=== PATIENT | male | born 1965 | race African-American/Black ===

== ENCOUNTER 2025-07-05 08:04 | Emergency (ER) | payer MEDICAID ==
[~2025-07-05] VITALS: Ht 182.9 cm; Wt 100.0 kg
[2025-07-05 08:06] VITALS: O2SAT 97
[2025-07-05 08:27] LABS: BASOPHILS % 0.5 % (0.0-2.0); EOSINOPHILS % 2.2 % (0.0-5.0); HEMATOCRIT. 38.8 % (42.0-52.0); HEMOGLOBIN. 12.7 g/dL (14.0-18.0); LYMPHOCYTES % 41.6 % (20.0-50.0); MEAN PLATELET VOLUME 9.7 fl (7.4-10.4); MONOCYTES % 6.7 % (2.0-8.0); NEUTROPHILS % 49.0 % (40.0-76.0); PLATELET 127 x1000/uL (130-400); RED BLOOD CELL COUNT 4.59 mill/uL (4.7-6.1); RED CELL DISTRIBUTION WIDTH 14.6 % (11.6-14.6)
[2025-07-05 08:45] LABS: CREATININE 1.2 mg/dL (0.6-1.3); TROPONIN I HIGH SENSITIVITY < 4 ng/L (3.0-53); UREA NITROGEN BLOOD 15 mg/dL (9-23)
[2025-07-05] MEDS: SODIUM CHLORIDE 0.9% 1,000 ML IV ONE (08:46)
[2025-07-05 08:47] LABS: ASPARTATE AMINOTRANSFERASE 13 IU/L (<34); BILIRUBIN DIRECT 0.1 mg/dL (<=3.0); BILIRUBIN TOTAL 0.4 mg/dL (0.1-1.0); PROTEIN TOTAL 6.1 g/dL (6.0-8.3)
[2025-07-05 08:49] LABS: T4 FREE 1.14 ng/dL (0.89-1.76)
[2025-07-05] MEDS: POTASSIUM CHLORIDE 20MEQ/PACKET PO ONE (11:08)
[2025-07-05 11:31] LABS: TROPONIN I HIGH SENSITIVITY < 4 ng/L (3.0-53)
[2025-07-05 11:36] VITALS: BP 112/69; PULSE 84; RESP 11; TEMP 36.3; O2SAT 97
[2025-07-05 13:23] LABS: INFLUENZA TYPE A Presumptive Negative (Pres. Neg.); INFLUENZA TYPE B Presumptive Negative (Pres. Neg.)
[2025-07-05 13:24] LABS: RESPIRATORY SYNCYTIAL VIRUS Not Detected (Not Detectd)
== END 2025-07-05 11:57 | disposition home or self-care (01) ==
LOC: ER 08:04
DX: E86.0 Dehydration (principal); Z20.822 Contact with and (suspected) exposure to COVID-19
CPT/HCPCS: 99285; 96360; 71045; 87426; 80076; 80048; 84439; 83735; 84443; 85025; 87420; 84484; 87804 ×2; 36415; 93005; J7030